=== PATIENT | female | born 1970 | race Caucasian/White ===

== ENCOUNTER 2020-08-06 00:42 | Outpatient (CLI) | payer OTHER, BC, SELFPAY ==
[2020-08-06 19:06] LABS: SARS-CoV-2 RNA PCR Negative
== END 2020-08-06 00:43 | disposition home or self-care (01) ==
LOC: ANHCOVIDDT 00:42
PROVIDERS: PCP Physician Assistant; Visit Provider Surgery Plastic and Reconstructive Surgery
DX: Z01.812 Encounter for preprocedural laboratory examination (principal); Z20.822 Contact with and (suspected) exposure to COVID-19
CPT/HCPCS: C9803; U0003

== ENCOUNTER 2020-08-09 00:33 | Day surgery (SDC) | payer OTHER, SELFPAY ==
[2020-08-03 12:59] VITALS: BMI 23.9
[2020-08-09] VITALS (10 sets, daily range): BP systolic 101–120; BP diastolic 55–71; PULSE 59–81; RESP 14–20; TEMP 36.1–36.4; O2SAT 97–100
--- NOTE | 2020-08-09 10:08 | PM.PROC ---
Procedure Note - Detailed Date of procedure: 08/09/20 Pre-op diagnosis: hx of breast augmentation Post-op diagnosis: same Procedure performed: Bilateral breast implant removal with capsulectomy Description of procedure: Preoperatively the risks, benefits, alternatives were again discussed extensively. I want to make sure she was very realistic about the risks involved as well as expectations. I was very up front honest that I can never guarantee complete removal of the capsule. This may not improve any of her symptoms. She understands she will need drains. All questions were answered to her satisfaction today and consent obtained. She was taken to the operating room placed supine on the operating room table. Anesthesia was provided by anesthesia and she was prepped and draped in a standard sterile fashion. Surgical time-out was taken. Fifteen blade used to make an incision at that IMF. Dissection was continued down until the implant capsule was identified. I made every attempt to remove as much of the capsule as possible doing this in a safe manner. Any residual capsule was cauterized. I removed bilateral implants which were sent to pathology. I saw no worrisome features. No masses or seromas. I irrigated with 3 L of saline solution. Placed bilateral 15 Jarret drains which were sutured into place with 3-0 nylon. I closed using 2-0 Vicryl followed by 3-0 Monocryl in a running subcuticular 4-0 Monocryl followed by tissue glue. Dressings were placed. She was awoke and taken to the PACU without difficulty. All instrument sponge counts were correct at the end of the case. Anesthesia: GLMA Surgeon: Jeffrey Wilkinson MD Estimated blood loss (mL): 10 Drains: Yes (Bilateral Jarret drains) Packing: No Pathology: yes (Bilateral breast capsules) Complications: No immediate complications Condition: stable Disposition: PACU Findings: No seroma. No masses. No worrisome features.
[2020-08-09] MEDS: LACTATED RINGERS 1,000 ML 30 ML IV CONT (10:50)
--- NOTE | 2020-08-09 11:01 | WPDANESEPPF ---
Anes - Initial Pre Proc Eval Procedure: Operation Date: 08/09/20 12:30 Proposed Procedures p Removal Bilateral Breast Implants with Capsulectomy - Jeffrey Wilkinson MD Date/Time: 08/09/20 11:01 Surgeon: Jeffrey Wilkinson MD Pre Op Diagnosis: hx of breast augmentation Patient Data Age: 50 Gender: F Height: 5 ft 4 in Weight: 63.2 kg Allergies Allergy/AdvReac Type Severity Reaction Status Date / Time bacitracin Allergy Severe Anaphylaxis Verified 08/06/20 08:42 [From Neosporin ([id number])] neomycin Allergy Severe Anaphylaxis Verified 08/06/20 08:42 [From Neosporin ([id number])] polymyxin B Allergy Severe Anaphylaxis Verified 08/06/20 08:42 [From Neosporin ([id number])] Penicillins Allergy Intermediate SWOLLEN Unverified 08/06/20 08:42 JOINTS/HIVES Home Medications Medication Instructions Recorded Confirmed Type folic acid 20 mg capsule 20 mg PO DAILY 06/13/20 08/03/20 History methotrexate (PF) 20 mg/0.4 mL 20 mg SUBCUT WEEKLY 06/13/20 08/03/20 History subcutaneous auto-injector valacyclovir 1 gram tablet 1,000 mg PO DAILY 06/13/20 08/03/20 History cholecalciferol (vitamin D3) 1,250 mcg PO WEEKLY 08/03/20 08/03/20 History docusate sodium 100 mg capsule 100 mg PO DAILY #14 cap 08/06/20 Rx ondansetron HCl 4 mg tablet 4 mg PO Q8H #24 tablet 08/06/20 Rx oxycodone-acetaminophen 5 mg-325 1 tablet PO Q6H PRN #15 tablet 08/07/20 08/07/20 Rx mg tablet Patient hx anesthesia problems: none Family hx anesthesia problems: none PMFSH Surgical History Surgical History History of History of cholecystectomy History of tubal ligation Family History Family History Mother Lung cancer Father Heart disease COPD (chronic obstructive pulmonary disease) Grandparent Breast cancer Lung cancer Colon cancer Social History Social History Smoking status: Never smoker Alcohol intake: current Living arrangements: with family Spiritual care concerns: No Anes - Eval Final PreProcedure Day of Procedure 08/09/20 11:01 Patient weight: normal Heart: regular rate and rhythm Lungs: clear to auscultation Airway: Mallampati scale class II Neurological: alert and oriented Last oral intake: >/= 8 hours ASA classification: II Emergent: no Anesthetic plan: proceed Anesthesia type and monitoring: general LMA and standard monitoring Informed Consent: The patient's anesthetic plan and its attendant risks and benefits were discussed with the patient/family/POA. Questions were solicited and answers provided to the satisfaction of the patient/family/POA.
[2020-08-09] MEDS: CLINDAMYCIN 900 MG/D5W 50 ML 900 MG/50 ML PIGGYBACK 50 MG IVPB (11:20)
--- NOTE | 2020-08-09 11:29 | SUR.OPER ---
bilateral breast injection [address] Wilkinson see MAR. Prep [employer]
--- NOTE | 2020-08-09 11:57 | SUR.OPER ---
right and left breast implants separate containers with patient ID Labels on/to clean processing and to return to OR. Sammy in clean processing notified of sending above.
--- NOTE | 2020-08-09 12:13 | SUR.OPER ---
bilateral breast capsule tissue fresh to pathology per PCT Jens to [facility] and informed of being fresh breast tissue.
[2020-08-09] MEDS: fentaNYL CITRATE INJ (*CRX) 100 MCG/2 ML VIAL 25 MCG IV PUSH ×5 (12:51→13:26)
[2020-08-09] MEDS: ONDANSETRON INJ 4 MG/2 ML VIAL IV PUSH (14:48)
== END 2020-08-09 15:15 | disposition home or self-care (01) ==
PROVIDERS: PCP Physician Assistant; Visit Provider Surgery Plastic and Reconstructive Surgery
PROC: 0HPT0JZ Removal of Synthetic Substitute from Right Breast, Open Approach (ICD-10-PCS; CPT 19371; principal; 2020-08-09 12:30)
DX: Z45.812 Encounter for adjustment or removal of left breast implant (principal); Z45.811 Encounter for adjustment or removal of right breast implant; N60.32 Fibrosclerosis of left breast; N60.31 Fibrosclerosis of right breast
CPT/HCPCS: 19371; 88305; J0171; J1100; J2250; J2405; J2704; J3010; J7040; J7120

== ENCOUNTER → 2021-04-22 12:28 | Outpatient (CLI) | payer BC, OTHER, SELFPAY ==
--- NOTE | ~2021-04-22 | XR_ITS ---
XR cervical spine 4-5V DATE: 04/22/2021 13:02 INDICATION: Neck pain TECHNIQUE: Standing AP, swimmer's, lateral, odontoid and open-mouth views. COMPARISON: None FINDINGS: There is straightening of the cervical spine. C1 and C2 are normally aligned and the odontoid process is intact. No fracture or dislocation or locked facet or prevertebral soft tissue swelling. There is approximately 1.2 mm anterolisthesis at C4-5 and lesser anterolisthesis at C5-6. Cervical interspaces appear relatively preserved. IMPRESSION: Straightening Mild anterolisthesis at C4-5, minimal anterolisthesis at C5-6 Reviewed, dictated and finalized at location B.
== END ==
PROVIDERS: PCP Physician Assistant; Visit Provider Physician Assistant
DX: M54.2 Cervicalgia (principal); M53.82 Other specified dorsopathies, cervical region; M43.12 Spondylolisthesis, cervical region
CPT/HCPCS: 72050

== ENCOUNTER 2021-05-25 07:35 | Outpatient (CLI) | payer BC, OTHER, SELFPAY ==
--- NOTE | ~2021-05-25 | MR_ITS ---
EXAMINATION: MR brain/brain stem wo con EXAM DATE: 05/25/2021 08:25 INDICATION: Paresthesia, blurred vision . TECHNIQUE: Magnetic resonance imaging (MRI) of the brain/brain stem obtained without contrast. Moritt al T1, axial diffusion, gradient echo (T2*), T1, T2, FLAIR sequences obtained. Comparison is made to prior examination from 05/25/2021. FINDINGS: There are no areas of restricted diffusion to suggest acute infarction. There is no acute hemorrhage seen on the T2*, a hemosiderin sensitive sequence. No intraparenchymal brain mass. The ve ntricles are normal in size. There are no extra-axial collections. Flow voids are seen in the cereb ral arteries on the T2-weighted sequences consistent with their expected patency. The orbits are unr emarkable. Soft tissue is unremarkable. Right maxillary silent sinus syndrome. IMPRESSION: 1. Unremarkable brain . 2. Right maxillary silent sinus syndrome. Reviewed, dictated and finalized at location A.
== END 2021-05-25 07:36 | disposition home or self-care (01) ==
LOC: ANHIMG 07:42
PROVIDERS: PCP Physician Assistant; Visit Provider Physician Assistant
DX: R20.2 Paresthesia of skin (principal); H53.8 Other visual disturbances; R42 Dizziness and giddiness; J34.89 Other specified disorders of nose and nasal sinuses
CPT/HCPCS: 70551

== ENCOUNTER 2021-05-28 10:09 | Outpatient (CLI) | payer BC, OTHER, SELFPAY ==
--- NOTE | 2021-05-28 11:30 | NEURO_ITS ---
Impression: # Complains of paresthesia of upper extremities. # Normal nerve conduction study including motor and sensory nerves. # Normal needle/EMG exam. # Clinical correlation recommended. Nerve Conduction Studies Anti Sensory Summary Table Stim Site NR Peak (ms) P-T Amp (?V) Site1 Site2 Delta-P (ms) Dist (cm) Eddie (m/s) Left Median Anti Sensory (2-3nd Digit) Wrist 2.9 52.4 Wrist 2-3nd Digit 2.9 14.0 48 Wrist 3.0 66.9 Wrist 2-3nd Digit 2.9 14.0 48 Right Median Anti Sensory (2-3nd Digit) Wrist 3.0 69.3 Wrist 2-3nd Digit 3.0 14.0 47 Wrist 3.0 31.2 Wrist 2-3nd Digit 3.0 14.0 47 Left Radial Anti Sensory (Base 1st Digit) Wrist 2.7 19.4 Wrist Base 1st Digit 2.7 0.0 Right Radial Anti Sensory (Base 1st Digit) Wrist 2.2 21.2 Wrist Base 1st Digit 2.2 0.0 Left Ulnar Anti Sensory (5th Digit) Wrist 2.7 51.2 Wrist 5th Digit 2.7 14.0 52 Right Ulnar Anti Sensory (5th Digit) Wrist 2.6 75.5 Wrist 5th Digit 2.6 14.0 54 Motor Summary Table Stim Site NR Onset (ms) O-P Amp (mV) Site1 Site2 Delta-0 (ms) Dist (cm) Eddie (m/s) Left Median Motor (Abd Poll Brev) Wrist 3.0 6.5 Elbow Wrist 4.4 26.0 59 Elbow 7.4 5.9 Right Median Motor (Abd Poll Brev) Wrist 2.9 6.7 Elbow Wrist 5.1 28.0 55 Elbow 8.0 3.3 Left Ulnar Motor (Abd Dig Minimi) Wrist 2.5 7.3 A Elbow Wrist 4.8 28.0 58 A Elbow 7.3 5.8 Right Ulnar Motor (Abd Dig Minimi) Wrist 2.7 8.0 A Elbow Wrist 4.7 28.0 60 A Elbow 7.4 6.7 F Wave Studies NR F-Lat (ms) L-R F-Lat (ms) Left Median (Mrkrs) (Abd Poll Brev) 27.05 0.64 Right Median (Mrkrs) (Abd Poll Brev) 27.70 0.64 Left Ulnar (Mrkrs) (Abd Dig Min) 28.05 0.00 Right Ulnar (Mrkrs) (Abd Dig Min) 28.05 0.00 EMG Side Muscle Nerve Root Ins Act Fibs Amp Dur Recrt Comment Right 1stDorInt Ulnar C8-T1 Nml Nml Nml Nml Nml Right Ext Indicis Radial (Post Int) C7-8 Nml Nml Nml Nml Nml Right Ext Digitorum Radial (Post Int) C7-8 Nml Nml Nml Nml Nml Right BrachioRad Radial C5-6 Nml Nml Nml Nml Nml Right PronatorTeres Median C6-7 Nml Nml Nml Nml Nml Right Abd Poll Brev Median C8-T1 Nml Nml Nml Nml Nml Left 1stDorInt Ulnar C8-T1 Nml Nml Nml Nml Nml Left Ext Indicis Radial (Post Int) C7-8 Nml Nml Nml Nml Nml Left Ext Digitorum Radial (Post Int) C7-8 Nml Nml Nml Nml Nml Left BrachioRad Radial C5-6 Nml Nml Nml Nml Nml Left PronatorTeres Median C6-7 Nml Nml Nml Nml Nml Left Abd Poll Brev Median C8-T1 Nml Nml Nml Nml Nml Right ABD Dig Min Ulnar C8-T1 Nml Nml Nml Nml Nml Left ABD Dig Min Ulnar C8-T1 Nml Nml Nml Nml Nml MTDD
== END 2021-05-28 10:10 | disposition home or self-care (01) ==
LOC: ANHNEURO 10:09
PROVIDERS: PCP Physician Assistant; Visit Provider Physician Assistant
DX: R20.2 Paresthesia of skin (principal)
CPT/HCPCS: 95886; 95910; 95911

== ENCOUNTER 2022-04-22 00:35 | Day surgery (SDC) | payer OTHER, SELFPAY ==
[2022-04-16 12:19] VITALS: BMI 25.7
--- NOTE | 2022-04-16 12:29 | PC.NURSE ---
Report to the Outpatient Waiting Room, entrance under the green pavilion located off [facility], at time 1215 on date 04/22/22. OR Time: 1415. Time changes happen often and if your time is changed the preop area will call you the afternoon before. - You and your visitor will be asked to self-screen and do not enter if you have any COVID symptoms. - Only one visitor and NO children visitors are allowed at this time. - The patient visitor is requested to leave or wait in car when not with patient due to restrictions. - A mask is required within the hospital. Patients may have clear liquids (water, carbonated beverages, clear teas, apple juice) until 3 hours prior to surgery with a maximum of 20 ounces. - No food from midnight until time of surgery Take the following medications with a SIP of water the morning of surgery: VALACYCLOVIR IF NEEDED Medications to discontinue per physician: IMURAN AVSOLA Date to take last dose: PER DR. GRIFFIN Please no make-up, nail taiwanese, hairspray, perfume, deodorant, or body powder the day of surgery. No jewelry (including any body piercings) or valuables the day of surgery, leave them at home. Please take a shower or bath the night before, or the morning of, surgery with an antibacterial soap. Wear comfortable, loose fitting clothing. - Jewelry must be removed prior to entering the operating room. Rings and piercings that are not removed may be cut off. - The hospital will not accept responsibility for valuables. - Please leave all valuables, including medications, at home the day of surgery. If you are going home after surgery, a licensed mechanic welder truck driver must drive you home. - NO public transportation without another adult. - We recommend that an adult stay with you for 24 hours following discharge. - We also recommend that you do not drive, make important decision, drink alcoholic beverages, or take any drugs that were not prescribed by your health care provider for at least 24 hours after your discharge time. Follow any additional instructions given to you from your surgeon. If you or anyone in your household have experienced Covid symptoms in the past week, please notify your surgeon or the nurse liaison at the phone number below for possible testing. Telephone instructions given to PT - MANNY GONZALES and asked if any additional questions and then verbalized understanding. Patient advised to call surgeon office or pre surgery nurse liaison [phone] if any additional questions.
[2022-04-22] VITALS (8 sets, daily range): BP systolic 104–117; BP diastolic 53–69; PULSE 64–88; RESP 12–18; TEMP 36.1–36.6; O2SAT 97–100
--- NOTE | 2022-04-22 12:59 | WPDANESEPPF ---
Anes - Initial Pre Proc Eval Procedure: Operation Date: 04/22/22 14:15 Proposed Procedures p Bilateral Breast Augmentation - Jeffrey Wilkinson MD Date/Time: 04/22/22 12:59 Surgeon: Jeffrey Wilkinson MD Pre Op Diagnosis: micromastia Patient Data Age: 51 Gender: F Height: 1.65 m Weight: 70.31 kg Allergies Allergy/AdvReac Type Severity Reaction Status Date / Time bacitracin Allergy Severe Anaphylaxis Verified 04/16/22 12:17 [From Neosporin ([id number])] neomycin Allergy Severe Anaphylaxis Verified 04/16/22 12:17 [From Neosporin ([id number]-[id number])] polymyxin B Allergy Severe Anaphylaxis Verified 04/16/22 12:17 [From Neosporin ([id number])] Penicillins Allergy Intermediate SWOLLEN Verified 04/16/22 12:17 JOINTS/HIVES Home Medications Medication Instructions Recorded Confirmed Type valacyclovir 1 gram tablet 1,000 mg PO DAILY PRN Cold Sores 06/13/20 04/16/22 History azathioprine 50 mg tablet (Imuran) 50 mg PO DAILY 10/24/21 04/16/22 History infliximab-axxq 100 mg intravenous 100 mg IV [id number] 10/24/21 04/16/22 History solution (Avsola) Patient hx anesthesia problems: none Family hx anesthesia problems: none Results Review: All pre-operative results and documents have been reviewed as part of the pre-operative evaluation. [facility] Past Medical History Medical History (Updated 12/03/21 @ 16:02 by Tia aBrriga) Anxiety Arthritis Depression Hepatitis at age 16 History of cold sores Rheumatoid arthritis infusions Screening mammogram, encounter for Seizure as a child Thyroid disease Surgical History Surgical History (Updated 10/23/21 @ 09:29 by Gloria Huang) History of abdominoplasty 2013 History of breast implant removal 08/09/20 History of 06/19/88 12/03/92 History of cardiovascular surgery 1998 heart augmentation History of cholecystectomy 1989 History of colposcopy with cervical biopsy cervical dysplasia History of orthopedic surgery 2014 tarsal tunnel right foot 2015 tarsal tunnel left foot History of robot-assisted laparoscopic hysterectomy 11/12/17 RA TLH--adenomyosis, acute & chronic inflammation, early proliferative endometrium History of tubal ligation 1995 Family History Family History Mother Lung cancer Father Heart disease Chronic obstructive lung disease Diabetes mellitus Grandparent Breast cancer Lung cancer Colon cancer Osteoporosis maternal grandmother Malignant neoplasm of liver maternal grandmother Social History Social History (Updated 10/24/21 @ 08:34 by SANDHYA Trivedi) Smoking status: Never smoker Alcohol intake: current Drinks per week: 3 Alcohol use details: ocassional Substance use: never Substance use type: does not use Living arrangements: with family Additional living arrangements comments: Additional occupation/education comments: [employer] Gender identity (if verbalized by the patient): Female Sexual Orientation (if Verbalized by the Patient): Straight or Heterosexual Spiritual care concerns: No Anes - Eval Final PreProcedure Day of Procedure 04/22/22 12:59 Patient weight: normal Heart: regular rate and rhythm Lungs: clear to auscultation Airway: Mallampati scale class II Neurological: alert and oriented Last oral intake: >/= 8 hours ASA classification: II Emergent: no Anesthetic plan: proceed Anesthesia type and monitoring: general LMA and standard monitoring Results Review: All pre-operative results and documents have been reviewed as part of the pre-operative evaluation. Informed Consent: The patient's anesthetic plan and its attendant risks and benefits were discussed with the patient/family/POA. Questions were solicited and answers provided to the satisfaction of the patient/family/POA.
[2022-04-22] MEDS: LACTATED RINGERS 1,000 ML 30 ML IV CONT ×2 (13:21→16:13)
--- NOTE | 2022-04-22 14:06 | WPDHPUPDATE1 ---
History and Physical Update Update Date/Time: 04/22/22 14:06 History and Physical has been reviewed, including an updated exam of the patient. There are NO changes in the patient's condition. Risks, benefits, and alternatives have been discussed and questions answered. Patient agrees to proceed with procedure.
--- NOTE | 2022-04-22 14:38 | W.PM.PROC2 ---
Procedure Note - Detailed Date of Procedure 04/22/22 Pre-op Diagnosis micromastia Post-op Diagnosis Same Procedure Performed Bilateral augmentation mammaplasty Surgeon Jeffrey Wilkinson MD Findings Bilateral saline 400cc filled to 420. Right REF# [id number] SN [id number] Left REF# [id number] SN [id number] Description of Procedure She is here today for bilateral breast augmentation. She has previously had submuscular augmentation and developed syptoms she attributes to breast implant illness. She does not believe this is a result of her implants and would like to proceed with replacement of implants. Previously and again today the risks, benefits, alternatives were discussed in extensive detail. I wanted her to be very realistic about the risks involved as well as expectations. We discussed aftercare and what to monitor for. Made sure answered all of her questions to her satisfaction today and consent was obtained. Marked in the preoperative holding area with their verification. The patient was taken to the operating room placed supine on the operating table. Anesthesia was provided by anesthesiology. A surgical time-out was taken. We cleansed the skin and 1% lidocaine and 0.25% Marcaine with epinephrine was used anesthetize as a field block. She was prepped and draped in a standard sterile fashion. Tegaderm nipple Parker were placed. A 15 blade used to make an incision removing the previous inframammary fold incision. Dissection was continued at 45 degree angle until the chest wall as identified. Previous pocket was entered which appeared to be larger than desired. Irrigated with 2 liters of saline on TUR tubing. Laterally popcorn capsulorraphy was completed (bilateral). I then copiously irrigated with saline solution and verified a strict hemostasis. Next the use a triple antibiotic and Betadine containing solution to irrigate the pocket. I washed my gloves with the triple antibiotic and Betadine solution. We washed the implant immediately upon opening it with this solution and only opened it when we needed it. I used implant funnel and no-touch technique. The implant was introduced into the pocket using the funnel. Having verified positioning of the implant this was closed using 2-0 Vicryl followed by 3-0 Monocryl in a running subcuticular 4-0 Monocryl followed by tissue glue. Fluffs and surgical bra were placed. Patient was awoke and taken to PACU without difficulty. All instrument sponge counts were correct at the end of the case. Estimated Blood Loss 10 Drains No Packing No Pathology None sent Complications No immediate complications Condition Stable Disposition PACU
[2022-04-22] MEDS: ceFAZolin 2 GM/D5W 50 ML 2 GM/50 ML BAG IVPB (14:58)
[2022-04-22] MEDS: BUPIVACAINE HCL 0.25% PF 30 ML VIAL INFILTRATE (15:09)
[2022-04-22] MEDS: LIDO 1%/EPINEPHRINE 1:100,000 10 ML VIAL 30 ML INFILTRATE (15:09)
[2022-04-22] MEDS: TRANEXAMIC ACID 1,000MG/ISO100 1,000 MG/100 ML BAG 200 MG IVPB (15:10)
[2022-04-22] MEDS: NACL 0.9% IRRIG POUR BOTTLE 900 ML, GENTAMICIN SULFATE INJ 160 MG, CLINDAMYCIN PHOS INJ... IRRIGATION (15:42)
--- NOTE | 2022-04-22 15:54 | SUR.OPER ---
Implants brought from 's office intact. #[id number] X 2 ANTWAN SALINE-FILLED BREAST IMPLANTS RIGHT SN #[id number] EXP: 06-30-2025 FILLED: 420ML LEFT SN #[id number] EXP: 06-30-2025 FILLED: 420ML
[2022-04-22] MEDS: oxyCODONE HCL (*CRX) 5 MG TAB IR PO (17:27)
== END 2022-04-22 18:05 | disposition home or self-care (01) ==
PROVIDERS: PCP Physician Assistant; Visit Provider Surgery Plastic and Reconstructive Surgery
PROC: (CPT 19325; principal; 2022-04-22 14:15)
DX: Z41.1 Encounter for cosmetic surgery (principal); N64.82 Hypoplasia of breast; M06.9 Rheumatoid arthritis, unspecified; Z79.899 Other long term (current) drug therapy
CPT/HCPCS: 19325; A9270; J0690; J1100; J1580; J2250; J2405; J2704; J3010; J7030; J7120

== ENCOUNTER 2022-07-23 08:59 | Emergency (ER) | payer BC, OTHER, SELFPAY ==
--- NOTE | ~2022-07-23 | CT_ITS ---
EXAMINATION: CT abdomen pelvis w con INDICATION: Abdominal pain TECHNIQUE: Computed tomographic images of the abdomen and pelvis were obtained after the administrati on of 100 cc of Omnipaque 350 intravenous contrast. The dose-length product (DLP) was 491.99 mGy-cm. Automated exposure control and iterative reconstruction technique were employed. COMPARISON: None available FINDINGS: Minimal dependent atelectasis is present in the lung bases. The heart size is normal. The l iver is diffusely low in attenuation when compared with the spleen, consistent with hepatic steatosis . The gallbladder is surgically absent. The spleen, pancreas, and adrenal glands are normal. The kidn eys are unremarkable. No pathologically enlarged abdominal or pelvic lymph nodes are identified. Ther e is no free intraperitoneal gas or evidence of bowel obstruction. The appendix is normal. There is m ild lumbar spondylosis. IMPRESSION: 1. No CT correlate for the patient's symptoms. Reviewed, dictated and finalized at location B. D[facility]ER
[2022-07-23 09:04] VITALS: BP 116/102; PULSE 78; RESP 24; TEMP 36.4; O2SAT 100
[2022-07-23 09:30] LABS: Alanine Aminotransferase 21 U/L (6-35); Albumin Level 4.7 g/dL (3.5-5.1); Alkaline Phosphatase 78 U/L (38-126); Anion Gap 7 mmol/L (8-16); Aspartate Amino Transferase 35 U/L (14-36); Bilirubin,Total 0.3 mg/dL (0.2-1.3); Blood Urea Nitrogen 9 mg/dL (7-17); Calcium 9.6 mg/dL (8.4-10.2); Carbon Dioxide 27 mmol/L (22-30); Chloride 104 mmol/L (98-107); Estimated CRCL calculation 75 ml/min; Estimated Glomerular Filt Rate > 60; Glucose 118 mg/dL (65-110); Lipase 35 U/L (23-300); Potassium 3.9 mmol/L (3.4-5.0); Sodium 138 mmol/L (137-145)
--- NOTE | 2022-07-23 09:36 | ED.ABDPAIN ---
HPI - Abdominal Pain General Chief Complaint: Abdominal Pain Stated Complaint: head cold since 07/19 and abd pain since 0645 Time Seen by Provider: 07/23/22 09:02 Source: patient Mode of arrival: ambulatory Limitations: no limitations History of Present Illness HPI narrative: Patient is a 52-year-old female who presents to the ED with report of abdominal pain and N/V/D. Patient reports she works overnights and developed diarrhea last night. She states the diarrhea was green and dark brown in color, almost black. Denies bright red rectal bleeding. She developed some cramping throughout her upper abdomen around 6:45 AM this morning. By the time she arrived home, she had developed nausea and vomiting, which has since persisted. Unable to keep down any food or drink, which prompted her presentation. Patient denies any fevers. She has not taken anything for symptoms today. Denies previous similar pain. Denies history of ulcers or diverticulitis. Related Data Home Medications Medication Instructions Recorded Confirmed valacyclovir 1 gram tablet 1,000 mg PO DAILY PRN Cold Sores 06/13/20 04/22/22 azathioprine 50 mg tablet (Imuran) 50 mg PO DAILY 10/24/21 04/22/22 infliximab-axxq 100 mg intravenous 100 mg IV [id number] 10/24/21 04/22/22 solution (Avsola) Allergies Allergy/AdvReac Type Severity Reaction Status Date / Time bacitracin Allergy Severe Anaphylaxis Verified 07/23/22 09:11 [From Neosporin ([id number]-[id number])] neomycin Allergy Severe Anaphylaxis Verified 07/23/22 09:11 [From Neosporin ([id number]-[id number])] polymyxin B Allergy Severe Anaphylaxis Verified 07/23/22 09:11 [From Neosporin ([id number])] Penicillins Allergy Intermediate SWOLLEN Verified 07/23/22 09:11 JOINTS/HIVES Review of Systems Review of Systems: CONSTITUTIONAL: Denies fever, chills, or sweats. ENT: Denies rhinorrhea, congestion, sore throat, or otalgia. CARDIOVASCULAR: Denies chest pain. RESPIRATORY: Denies dyspnea. GASTROINTESTINAL: Reports upper abdominal pain, nausea, vomiting, and diarrhea. Denies rectal bleeding. GENITOURINARY: Denies dysuria, hematuria. All systems reviewed & are unremarkable except as noted in HPI and below PMFSH Past Medical History Medical History Anxiety Arthritis Depression Hepatitis at age 16 History of cold sores Rheumatoid arthritis infusions Screening mammogram, encounter for Seizure as a child Thyroid disease Surgical History Surgical History History of abdominoplasty 2014 History of breast implant removal 08/09/20 History of 06/19/88 12/03/92 History of cardiovascular surgery 1998 heart augmentation History of cholecystectomy 1989 History of colposcopy with cervical biopsy cervical dysplasia History of orthopedic surgery 2014 tarsal tunnel right foot 2016 tarsal tunnel left foot History of robot-assisted laparoscopic hysterectomy 11/12/17 RA TLH--adenomyosis, acute & chronic inflammation, early proliferative endometrium History of tubal ligation 1995 Family History Family History Mother Lung cancer Father Heart disease Chronic obstructive lung disease Diabetes mellitus Grandparent Breast cancer Lung cancer Colon cancer Osteoporosis maternal grandmother Malignant neoplasm of liver maternal grandmother Social History Social History Smoking status: Never smoker Alcohol intake: current Drinks per week: 3 Alcohol use details: ocassional Substance use: never Substance use type: does not use Additional living arrangements comments: Additional occupation/education comments: [employer] Gender identity (if verbalized by the patient): Female Sexual Orientatio
[2022-07-23] MEDS: SODIUM CHLORIDE 0.9% IV 1,000 ML 999 ML IV CONT ×2 (09:42→11:52)
[2022-07-23] MEDS: ONDANSETRON INJ 4 MG/2 ML VIAL IV PUSH (09:42)
[2022-07-23 09:44] LABS: Basophils Absolute Auto 0.1 K/mm3 (0.0-0.1); Basophils Percent Auto 0.9 % (0.2-1.2); Eosinophils Absolute Auto 0.1 K/mm3 (0-0.3); Eosinophils Percent Auto 2.4 % (0-4.4); Hematocrit 38.1 % (37.0-47.0); Hemoglobin 12.9 g/dL (12.0-15.0); Immature Granulocyte Absolute 0.03 K/mm3 (0.00-0.031); Immature Granulocyte Percent A 0.5 % (0-0.5); Lymphocytes Absolute Auto 2.24 K/mm3 (0.9-3.2); Mean Corpuscular HGB Conc 33.9 g/dl (32-36); Mean Corpuscular Volume 97.4 fl (80-100); Mean Platelet Volume 9.1 fl (7.4-10.4); Monocytes Absolute Auto 0.7 K/mm3 (0.1-0.6); Monocytes Percent Auto 12.1 % (2.6-8.5); Neutrophils Absolute Auto 2.4 K/mm3 (1.3-6.7); Neutrophils Percent Auto 43.1 % (45.5-73.1); Platelet Count Result 404 k/mm3 (150-375); Red Blood Count 3.91 M/mm3 (4.2-5.4); Red Cell Distribution Width 14.2 % (11.5-14.5); White Blood Count 5.5 K/mm3 (4.5-10.0)
[2022-07-23] MEDS: PANTOPRAZOLE SODIUM IV 40 MG VIAL IV PUSH (10:12)
[2022-07-23 11:02] LABS: Influenza A QL RT-PCR Negative (Negative); Influenza B QL RT-PCR Negative (Negative); SARS-CoV-2 RNA PCR Negative
[2022-07-23 11:14] VITALS: BP 97/64; PULSE 68; RESP 14; O2SAT 97
[2022-07-23 12:02] LABS: Add Urine Microscopic? NO; Appearance Urine Clear (Clear); Bilirubin Urine Negative (Negative); Blood Urine Negative (Negative); Color Urine Light Yellow (Yellow); Glucose Urine UA Negative (Negative); Ketones Urine Negative (Negative); Leukocyte Esterase Ur Negative LEU/UL (Negative); Nitrate Urine Negative (Negative); Protein Urine Negative (Negative); Specific Grav Ur <= 1.005 (1.001-1.035); Urobilinogen Urine 0.2 mg/dL (<2.0)
[2022-07-23 13:05] VITALS: BP 88/59; PULSE 73; RESP 14; O2SAT 97
[2022-07-23 13:21] VITALS: BP 113/70
[2022-07-23 13:31] VITALS: BP 103/61; PULSE 82; RESP 16; O2SAT 97
== END 2022-07-23 13:40 | disposition home or self-care (01) ==
PROVIDERS: Emergency Provider Physician Assistant; PCP Physician Assistant
DX: K52.9 Noninfective gastroenteritis and colitis, unspecified (principal); Z20.822 Contact with and (suspected) exposure to COVID-19; E07.9 Disorder of thyroid, unspecified; M06.9 Rheumatoid arthritis, unspecified; M19.90 Unspecified osteoarthritis, unspecified site; Z86.19 Personal history of other infectious and parasitic diseases
CPT/HCPCS: 36415; 74177; 80053; 81003; 83690; 85025; 87636; 96361; 96365; 96375; 99284; C9113; J0131; J2405; J7030; Q9967

== ENCOUNTER 2022-11-21 01:02 | Day surgery (SDC) | payer BC, OTHER, SELFPAY ==
[2022-11-12 09:33] VITALS: BMI 27.6
--- NOTE | 2022-11-20 09:47 | WPDANESEPPF ---
Anes - Initial Pre Proc Eval Procedure: Operation Date: 11/21/22 11:15 Proposed Procedures p Esophagogastroduodenoscopy & Screening Colonoscopy - Kun Saxena MD Date/Time: 11/20/22 09:47 Surgeon: Kun Saxena MD Pre Op Diagnosis: neoplasm screening, GERD Patient Data Age: 52 Gender: F Height: 1.63 m Weight: 73 kg Allergies Allergy/AdvReac Type Severity Reaction Status Date / Time bacitracin Allergy Severe Anaphylaxis Verified 11/12/22 09:29 [From Neosporin ([id number])] neomycin Allergy Severe Anaphylaxis Verified 11/12/22 09:29 [From Neosporin ([id number])] polymyxin B Allergy Severe Anaphylaxis Verified 11/12/22 09:29 [From Neosporin ([id number])] Penicillins Allergy Intermediate SWOLLEN Verified 11/12/22 09:29 JOINTS/HIVES Home Medications Medication Instructions Recorded Confirmed Type valacyclovir 1 gram tablet 1,000 mg PO DAILY PRN Cold Sores 06/13/20 11/12/22 History azathioprine 50 mg tablet (Imuran) See Rx Instructions .Route .COMPLEX 10/24/21 11/12/22 History infliximab-axxq 100 mg intravenous 100 mg IV [id number] 10/24/21 11/12/22 History solution (Avsola) omeprazole 20 mg capsule,delayed 20 mg PO DAILY #30 caps 07/23/22 11/12/22 Rx release ondansetron 4 mg disintegrating 4 mg PO Q8H PRN nausea and 07/23/22 11/12/22 Rx tablet vomiting #20 tabs sodium,potassium,mag sulfates 17.5 See Rx Instructions PO .COMPLEX 10/30/22 Rx gram-3.13 gram-1.6 gram oral soln #354 mL (Suprep Bowel Prep Kit) Patient hx anesthesia problems: none Family hx anesthesia problems: none Results Review: All pre-operative results and documents have been reviewed as part of the pre-operative evaluation. [facility] Past Medical History Medical History (Updated 11/20/22 @ 09:47 by Tyree Stockton DO) Anxiety Arthritis Depression Hepatitis at age 16 History of cold sores Rheumatoid arthritis infusions Screening mammogram, encounter for Seizure as a child Thyroid disease Surgical History Surgical History History of abdominoplasty 2013 History of breast implant removal 08/09/20 History of 06/19/88 12/03/92 History of cardiovascular surgery 1998 heart augmentation History of cholecystectomy 1989 History of colposcopy with cervical biopsy cervical dysplasia History of orthopedic surgery 2015 tarsal tunnel right foot 2016 tarsal tunnel left foot History of robot-assisted laparoscopic hysterectomy 11/12/17 [facility]--adenomyosis, acute & chronic inflammation, early proliferative endometrium History of tubal ligation 1995 Family History Family History Mother Lung cancer Father Heart disease Chronic obstructive lung disease Diabetes mellitus Grandparent Breast cancer Lung cancer Colon cancer Osteoporosis maternal grandmother Malignant neoplasm of liver maternal grandmother Social History Social History Smoking status: Never smoker Alcohol intake: current Drinks per week: 3 Alcohol use details: socially Substance use: never Substance use type: does not use Living arrangements: with family Additional living arrangements comments: Occupation/Education: occupation Additional occupation/education comments: [employer] Gender identity (if verbalized by the patient): Female Sexual Orientation (if Verbalized by the Patient): Straight or Heterosexual Spiritual care concerns: No Anes - Eval Final PreProcedure Day of Procedure 11/20/22 09:47 Patient weight: overweight Heart: regular rate and rhythm Lungs: clear to auscultation Airway: Mallampati scale class II Neurological: alert and oriented Last oral intake: >/= 8 hours ASA classification: II Emergent: no Anestheti
[2022-11-21 06:47] VITALS: BP 111/68; PULSE 74; RESP 18; TEMP 36.1; O2SAT 99; BMI 28.0
[2022-11-21] MEDS: LACTATED RINGERS 1,000 ML 150 ML IV CONT (07:08)
--- NOTE | 2022-11-21 07:33 | PM.HPGS ---
History of Present Illness History of Present Illness Consent: Risks, benefits, and alternatives have been discussed and questions answered. Patient agrees to proceed with procedure. Chief complaint: neoplasm screening, GERD Narrative: Gladis Lockhart is a 52 year old female Presents for colonoscopy and EGD. Patient's current weight appetite bowel movements are normal. Patient reports since July she has had 3 episodes typically will have several days of heartburn followed by not nausea vomiting. She initially went to the ER and was prescribed Zofran which she has taken on subsequent episodes this will break her cycle. She feels good until the next episode. She really denies any precipitating events. She has continued since July on omeprazole and addition to Zofran. She presents today for further evaluation with EGD and colonoscopy. Patient has never had colonoscopy screening has been advised. She denies any blood in her stools. She has no fever. Family history is noncontributory. Review of Systems Review of Systems: Review of systems noncontributory. [facility] Past Medical History Medical History (Updated 11/21/22 @ 07:36 by Kun Saxena MD) Anxiety Arthritis Depression Hepatitis at age 16 History of cold sores Rheumatoid arthritis infusions Screening mammogram, encounter for Seizure as a child Thyroid disease Surgical History Surgical History History of abdominoplasty 2013 History of breast implant removal 08/09/20 History of 06/19/88 12/03/92 History of cardiovascular surgery 1998 heart augmentation History of cholecystectomy 1989 History of colposcopy with cervical biopsy cervical dysplasia History of orthopedic surgery 2014 tarsal tunnel right foot 2016 tarsal tunnel left foot History of robot-assisted laparoscopic hysterectomy 11/12/17 [facility]--adenomyosis, acute & chronic inflammation, early proliferative endometrium History of tubal ligation 1995 Family History Family History Mother Lung cancer Father Heart disease Chronic obstructive lung disease Diabetes mellitus Grandparent Breast cancer Lung cancer Colon cancer Osteoporosis maternal grandmother Malignant neoplasm of liver maternal grandmother Social History Social History Smoking status: Never smoker Alcohol intake: current Drinks per week: 3 Alcohol use details: socially Substance use: never Substance use type: does not use Living arrangements: with family Additional living arrangements comments: Occupation/Education: occupation Additional occupation/education comments: [employer] Gender identity (if verbalized by the patient): Female Sexual Orientation (if Verbalized by the Patient): Straight or Heterosexual Spiritual care concerns: No Meds Home Medications and Allergies Home Medications Medication Instructions Recorded Confirmed Type valacyclovir 1 gram tablet 1,000 mg PO DAILY PRN Cold Sores 06/13/20 11/12/22 History azathioprine 50 mg tablet (Imuran) See Rx Instructions .Route .COMPLEX 10/24/21 11/12/22 History infliximab-axxq 100 mg intravenous 100 mg IV [id number] 10/24/21 11/12/22 History solution (Avsola) omeprazole 20 mg capsule,delayed 20 mg PO DAILY #30 caps 07/23/22 11/12/22 Rx release ondansetron 4 mg disintegrating 4 mg PO Q8H PRN nausea and 07/23/22 11/12/22 Rx tablet vomiting #20 tabs sodium,potassium,mag sulfates 17.5 See Rx Instructions PO .COMPLEX 10/30/22 Rx gram-3.13 gram-1.6 gram oral soln #354 mL (Suprep Bowel Prep Kit) Allergies Allergy/AdvReac Type Severity Reaction Status Date / Time bacitracin Allergy Severe Anaphylaxis Verified 11/12/22 09:29 [From Neosporin ([id number])] neomycin A
--- NOTE | 2022-11-21 08:20 | SUR.OPER ---
Egd completed at 08, Colonoscopy started at 08
[2022-11-21] MEDS: SIMETHICONE ORAL SUSPENSION 20 MG/0.3 ML 30 ML BOTTLE 0.6 ML IRRIGATION (08:22)
[2022-11-21 08:33] VITALS: BP 112/71; PULSE 81; RESP 18; O2SAT 98
[2022-11-21 08:43] VITALS: BP 114/71; PULSE 75; RESP 21; O2SAT 97
[2022-11-21 08:53] VITALS: BP 117/76; PULSE 65; RESP 20; O2SAT 99
== END 2022-11-21 08:55 | disposition home or self-care (01) ==
PROVIDERS: PCP Physician Assistant; Visit Provider Internal Medicine Gastroenterology
PROC: 0DJ08ZZ Inspection of Upper Intestinal Tract, Via Natural or Artificial Opening Endoscopic (ICD-10-PCS; CPT 43235; principal; 2022-11-21 08:00)
DX: Z12.11 Encounter for screening for malignant neoplasm of colon (principal); K64.8 Other hemorrhoids; R11.2 Nausea with vomiting, unspecified; D64.9 Anemia, unspecified; R10.13 Epigastric pain; M06.9 Rheumatoid arthritis, unspecified; Z79.620 Long term (current) use of immunosuppressive biologic
CPT/HCPCS: 45378; 43239; 87081; J2704; J7120

== ENCOUNTER → 2023-06-23 07:40 | Outpatient (CLI) | payer BC, OTHER, SELFPAY ==
--- NOTE | ~2023-06-23 | MR_ITS ---
MRI of the cervical spine Clinical History: Paresthesia bilateral hands Technique: Axial T2-weighted and gradient images, and sagittal T1-weighted, T2-weighted, and STIR mike ges were acquired. Findings: No fracture or subluxation seen in cervical spine. There is straightening of the normal cer vical lordosis. Vertebral bodies otherwise maintain normal height and alignment. No suspicious bone m arrow signal abnormality seen. No significant disc bulge or herniation seen at any cervical level. There are mild facet joint degene rative changes. No spinal canal stenosis, cord compression, or neural foraminal narrowing seen at any cervical level. No abnormal signal seen in the spinal cord. Paravertebral soft tissues are unremarkable. Impression: No significant abnormality seen. Reviewed, dictated and finalized at [facility]. [employer] Impression: No significant abnormality seen.
== END ==
PROVIDERS: PCP Orthopaedic Surgery; Visit Provider Orthopaedic Surgery
DX: R20.2 Paresthesia of skin (principal)
CPT/HCPCS: 72141

== ENCOUNTER 2023-08-07 03:29 | Day surgery (SDC) | payer BC, OTHER, SELFPAY ==
--- NOTE | 2023-08-02 10:05 | PM.IMHP ---
H&P: HPI History of Present Illness Date/Time: 08/02/23 10:05 Chief Complaint: stress incontinence Narrative: 53-year-old with stress incontinence. She desires surgical correction Review of Systems Review of Systems: All systems reviewed & are unremarkable except as noted in HPI and below PMFSH Past Medical History Medical History Anxiety Arthritis Depression Hepatitis at age 16 History of cold sores Menopause Normal endoscopic ultrasound of upper gastrointestinal tract Rheumatoid arthritis infusions Screening mammogram, encounter for Seizure as a child Surgical History Surgical History History of abdominoplasty 2013 History of breast implant removal 08/09/20 History of 06/19/88 12/03/92 History of cardiovascular surgery 1998 heart augmentation History of cholecystectomy 1989 History of colposcopy with cervical biopsy cervical dysplasia History of orthopedic surgery 2014 tarsal tunnel right foot 2016 tarsal tunnel left foot History of robot-assisted laparoscopic hysterectomy 11/12/17 [facility]--adenomyosis, acute & chronic inflammation, early proliferative endometrium History of tubal ligation 1995 Family History Family History Mother Lung cancer Father Heart disease Chronic obstructive lung disease Diabetes mellitus Grandparent Breast cancer Lung cancer Colon cancer Osteoporosis maternal grandmother Malignant neoplasm of liver maternal grandmother Social History Social History Smoking status: Never smoker Alcohol intake: current Drinks per week: 3 Alcohol use details: socially Substance use: never Substance use type: does not use Lack of Transportation: No Lack of Food: Never True Current Housing: I Have Housing Concerned About Future Housing: No Difficulty Paying Gas/Electric Bills: No Difficulty Paying for Meds: No Currently Unemployed: No Education: High School Diploma/GED Difficulty w/ Childcare or Family Care: No Living arrangements: with family Additional living arrangements comments: Occupation/Education: occupation Additional occupation/education comments: [employer] Gender identity (if verbalized by the patient): Female Sexual Orientation (if Verbalized by the Patient): Straight or Heterosexual Spiritual care concerns: No Meds Home Medications and Allergies Home Medications Medication Instructions Recorded Confirmed Type valacyclovir 1 gram tablet 1,000 mg PO DAILY PRN Cold Sores 06/13/20 11/12/22 History azathioprine 50 mg tablet (Imuran) See Rx Instructions .Route .COMPLEX 10/24/21 11/12/22 History omeprazole 20 mg capsule,delayed 20 mg PO DAILY #30 caps 07/23/22 11/12/22 Rx release ondansetron 4 mg disintegrating 4 mg PO Q8H PRN nausea and 07/23/22 11/12/22 Rx tablet vomiting #20 tabs infliximab 100 mg intravenous IV 01/19/23 History solution (Remicade) estradiol 0.5 mg tablet 0.5 mg PO DAILY #90 tabs 02/18/23 Rx Allergies Allergy/AdvReac Type Severity Reaction Status Date / Time bacitracin Allergy Severe Anaphylaxis Verified 01/19/23 08:43 [From Neosporin ([id number])] neomycin Allergy Severe Anaphylaxis Verified 01/19/23 08:43 [From Neosporin ([id number])] polymyxin B Allergy Severe Anaphylaxis Verified 01/19/23 08:43 [From Neosporin ([id number])] Penicillins Allergy Intermediate SWOLLEN Verified 01/19/23 08:43 JOINTS/HIVES Exam Narrative: no acute distress normal breathing alert oriented x3 urethral hypermobility Assessment and Plan Assessment and plan (1) TIKA (stress urinary incontinence, female): Code(s): N39.3 - Stress incontinence (female) (male
[2023-08-03 08:21] VITALS: BMI 28.3
--- NOTE | 2023-08-03 08:43 | PC.NURSE ---
Report to the Outpatient Waiting Room, entrance under the green pavilion located off [facility], at 0630 on 08-07-23. Planned Procedure Time: 0830. Time changes happen often and if your time is changed the preop area will call you the afternoon before. - You and your visitor will be asked to self-screen and do not enter if you have any COVID symptoms. - A mask is optional within the hospital at this time. Patients may have clear liquids (water, carbonated beverages, clear teas, apple juice) until 3 hours prior to surgery with a maximum of 20 ounces. 0530 - No food from midnight until time of surgery - Infants may have breast milk until 4 hours before surgery, formula 6 hours prior to surgery. - Children will be allowed to drink immediately following surgery. If applicable, please bring a bottle or sippy cup to assist with drinking. Juice, water, soda, and popsicles are readily available. For infants on formula, please bring formula the day of surgery. Pacifiers are allowed. Take the following medications with a SIP of water the morning of surgery: None DO NOT STOP ANY OF YOUR OTHER PRESCRIPTION MEDICATIONS PRIOR TO SURGERY ?EXCEPT THE FOLLOWING Medications to discontinue per physician: vitamins and supplements Date to take last dose: 08-04-23 Please no make-up, nail american, hairspray, perfume, deodorant, or body powder the day of surgery. No jewelry (including any body piercings) or valuables the day of surgery, leave them at home. Please take a shower or bath the night before, or the morning of, surgery with an antibacterial soap. Wear comfortable, loose fitting clothing. Children are encouraged to wear pajamas. - Jewelry must be removed prior to entering the operating room. Rings and piercings that are not removed may be cut off. - The hospital will not accept responsibility for valuables. - Please leave all valuables, including medications, at home the day of surgery. If you are going home after surgery, a licensed reefer truck driver must drive you home. - NO public transportation without another adult if you receive anesthesia. - We recommend that an adult stay with you for 24 hours following discharge. - We also recommend that you do not drive, make important decision, drink alcoholic beverages, or take any drugs that were not prescribed by your health care provider for at least 24 hours after your discharge time. For Pediatric surgeries, we recommend two adults accompany the child home. Follow any additional instructions given to you from your surgeon. If you or anyone in your household have experienced Covid symptoms in the past week, please notify your surgeon or the nurse liaison at the phone number below for possible testing. Telephone instructions given to Gladis Lockhart and asked if any additional questions and then verbalized understanding. Patient advised to call surgeon office or pre surgery nurse liaison [phone] if any additional questions.
[2023-08-07] VITALS (8 sets, daily range): BP systolic 97–126; BP diastolic 51–79; PULSE 58–80; RESP 12–16; TEMP 36.6; O2SAT 96–99
[2023-08-07] MEDS: LACTATED RINGERS 1,000 ML 30 ML IV CONT (07:03)
--- NOTE | 2023-08-07 07:16 | WPDHPUPDATE1 ---
History and Physical Update Update Date/Time: 08/07/23 07:16 History and Physical has been reviewed, including an updated exam of the patient. There are NO changes in the patient's condition. Risks, benefits, and alternatives have been discussed and questions answered. Patient agrees to proceed with procedure.
--- NOTE | 2023-08-07 07:54 | WPDANESEPPF ---
Anes - Initial Pre Proc Eval Procedure: Operation Date: 08/07/23 08:30 Proposed Procedures p Urethral Sling - Mike Rosales MD Date/Time: 08/07/23 07:54 Surgeon: Mike Rosales MD Pre Op Diagnosis: stress incontinence Patient Data Age: 53 Gender: F Height: 1.63 m Weight: 77 kg Last Vital Signs Temp 97.8 F 08/07/23 06:42 Pulse 75 08/07/23 06:42 Resp 16 08/07/23 06:42 BP 119/79 08/07/23 06:42 Pulse Ox 96 08/07/23 06:42 O2 Del Method Room Air 08/07/23 06:42 Allergies Allergy/AdvReac Type Severity Reaction Status Date / Time bacitracin Allergy Severe Anaphylaxis Verified 08/07/23 06:56 [From Neosporin ([id number])] neomycin Allergy Severe Anaphylaxis Verified 08/07/23 06:56 [From Neosporin ([id number])] polymyxin B Allergy Severe Anaphylaxis Verified 08/07/23 06:56 [From Neosporin ([id number])] Penicillins Allergy Intermediate SWOLLEN Verified 08/07/23 06:56 JOINTS/HIVES Home Medications Medication Instructions Recorded Confirmed Type valacyclovir 1 gram tablet 1,000 mg PO DAILY PRN Cold Sores 06/13/20 08/07/23 History infliximab 100 mg intravenous 100 mg IV [id number] 01/19/23 08/07/23 History solution (Remicade) azathioprine 50 mg tablet 50 mg PO BID 08/03/23 08/07/23 History cholecalciferol (vitamin D3) 25 25 mcg PO DAILY 08/03/23 08/07/23 History mcg (1,000 unit) capsule (Vitamin D3) Patient hx anesthesia problems: post op nausea/vomiting Family hx anesthesia problems: none Results Review: All pre-operative results and documents have been reviewed as part of the pre-operative evaluation. [facility] Past Medical History Medical History Anxiety Arthritis Depression Hepatitis at age 16 History of cold sores Menopause Normal endoscopic ultrasound of upper gastrointestinal tract Rheumatoid arthritis infusions Screening mammogram, encounter for Seizure as a child Surgical History Surgical History History of abdominoplasty 2013 History of breast implant removal 08/09/20 History of 06/19/88 12/03/92 History of cardiovascular surgery 1998 heart augmentation History of cholecystectomy 1989 History of colposcopy with cervical biopsy cervical dysplasia History of orthopedic surgery 2014 tarsal tunnel right foot 2016 tarsal tunnel left foot History of robot-assisted laparoscopic hysterectomy 11/12/17 [facility]--adenomyosis, acute & chronic inflammation, early proliferative endometrium History of tubal ligation 1995 Family History Family History Mother Lung cancer Father Heart disease Chronic obstructive lung disease Diabetes mellitus Grandparent Breast cancer Lung cancer Colon cancer Osteoporosis maternal grandmother Malignant neoplasm of liver maternal grandmother Social History Social History Smoking status: Never smoker Second hand tobacco smoke exposure: No Alcohol intake: current Drinks per week: 3 Alcohol use details: sometimes Substance use: never Substance use type: does not use Lack of Transportation: No Lack of Food: Never True Current Housing: I Have Housing Concerned About Future Housing: No Difficulty Paying Gas/Electric Bills: No Difficulty Paying for Meds: No Currently Unemployed: No Education: High School Diploma/GED Difficulty w/ Childcare or Family Care: No Living arrangements: with family Additional living arrangements comments: Occupation/Education: occupation Additional occupation/education comments: [employer] Gender identity (if verbalized by the patient): Female Sexual Orientation (if Verbalized by the Patient): Straight or Heterosexual Spiritual car
[2023-08-07] MEDS: ceFAZolin 2 GM/D5W 50 ML 2 GM/50 ML BAG IVPB (08:16)
[2023-08-07] MEDS: BUPIVACAINE/EPINEPHRINE 0.5% 50 ML VIAL 30 ML INFILTRATE (08:31)
[2023-08-07] MEDS: oxyCODONE HCL (*CRX) 5 MG TAB IR PO (09:46)
--- NOTE | 2023-08-07 11:25 | W.PM.PROC2 ---
Procedure Note - Detailed Date of Procedure 08/07/23 Pre-op Diagnosis stress incontinence Post-op Diagnosis Same Procedure Performed mid urethral sling cystoscopy Surgeon Mike Rosales MD Anesthesia General Indications This is a female with confirm stress urinary incontinence. She desires surgical correction. She understands the risks of bleeding, infection, injury to the urinary tract, vaginal mesh extrusion, urinary tract mesh erosion, obstructive voiding requiring a secondary procedure, hip and leg pain, dyspareunia, inability to improve overactive bladder symptoms. She agrees to proceed. Description of Procedure She was correctly identified. Informed consent obtained. She was brought the operating room. She was given appropriate anesthesia. She was given appropriate perioperative antibiotics. A time-out performed. I marked out the site of the inner thigh incisions. I anesthetized the skin and made those incisions. I anesthetized the anterior vaginal wall over the mid urethra. I made a 1 cm incision. I dissected out laterally taking great care not to injure the refilled vaginal wall. I passed the helical trocars. First on the left. Then on the right. I did this from the thigh incision towards the vaginal incision. The sling was connected to the trocars and brought out through the thigh incision. I tensioned the sling appropriately. I cut and the plastic sheaths. I then closed the incision with 2 0 Vicryl. On cystoscopy there is no tumors or surgical artifact. There was no surgical artifact in the urethra. I cut the excess sling material. Close incisions with glue. She was awakened and transferred to the PACU in stable condition. Implants Urethral sling Estimated Blood Loss 20 Drains No Packing No Pathology None sent Complications No immediate complications Condition Stable Disposition PACU
== END 2023-08-07 10:53 | disposition home or self-care (01) ==
PROVIDERS: Visit Provider Urology
PROC: (CPT 57288; principal; 2023-08-07 08:30)
DX: N39.3 Stress incontinence (female) (male) (principal)
CPT/HCPCS: 57288; A9270; C1771; J0690; J1885; J2250; J2405; J2704; J3010; J7030; J7120

== ENCOUNTER 2025-03-15 10:46 | Emergency (ER) | payer BC, OTHER, SELFPAY ==
--- NOTE | ~2025-03-15 | XR_ITS ---
EXAMINATION: XR foot RT min 3V DATE: 03/15/2025 11:32 INDICATION: Pain to distal aspect of the right first, second and third metatarsals TECHNIQUE: 4 images of the right foot were obtained COMPARISON: None. FINDINGS: Posterior cruciate which limits evaluation. No fracture. No dislocation. Soft tissue swelling. Moderate-sized plantar calcaneal spur. IMPRESSION: 1. No fracture or dislocation. If symptoms persist or worsen, consider a short-term follow-up study or additional imaging for further assessment. Reviewed, dictated and finalized at location A. IMPRESSION: 1. No fracture or dislocation. If symptoms persist or worsen, consider a short-term follow-up study or additio nal imaging for further assessment.
[2025-03-15 11:10] VITALS: BP 112/73; PULSE 83; RESP 20; TEMP 36.4; O2SAT 98
--- NOTE | 2025-03-15 11:17 | ED.LOWEXIN ---
HPI - Extremity Injury (Lower) General Chief Complaint: Extremity Injury, Lower Stated Complaint: Fall / wants right foot checked out Time Seen by Provider: 03/15/25 11:17 Source: patient Mode of arrival: ambulatory Limitations: no limitations History of Present Illness HPI Narrative: 54 yo F presents with pain to R foot since last night. Missed last step and states toes and foot bent backwards, landed forward onto knees and then fell backwards. pain when bearing weight. Distal NV intact. Concerned for fracture. All systems reviewed and negative except as noted above. Related Data Home Medications ?Medication ?Instructions ?Recorded ?Confirmed ?Last Taken ?Type azathioprine 50 mg tablet 50 mg PO BID 08/03/23 01/30/25 Unknown History cholecalciferol (vitamin D3) 25 25 mcg PO DAILY 08/03/23 01/30/25 Unknown History mcg (1,000 unit) capsule (Vitamin D3) Allergies Allergy/AdvReac Type Severity Reaction Status Date / Time bacitracin (From Neosporin Allergy Severe Anaphylaxis Verified 03/15/25 11:19 ([id number])) neomycin (From Neosporin Allergy Severe Anaphylaxis Verified 03/15/25 11:19 ([id number])) polymyxin B (From Neosporin Allergy Severe Anaphylaxis Verified 03/15/25 11:19 ([id number])) Penicillins Allergy Intermediate SWOLLEN Verified 03/15/25 11:19 [facility] Past Medical History Medical History (Updated 03/16/25 @ 00:02 by Jessi Silver) Lip lesion scraped and was precancerous cells Normal endoscopic ultrasound of upper gastrointestinal tract Menopause Screening mammogram, encounter for Rheumatoid arthritis infusions Arthritis Anxiety Depression Hepatitis at age 16 History of cold sores Seizure as a child Surgical History Surgical History H/O midurethral sling procedure (08/07/23) History of breast implant removal 08/09/20 History of colposcopy with cervical biopsy cervical dysplasia History of robot-assisted laparoscopic hysterectomy 11/12/17 [facility]--adenomyosis, acute & chronic inflammation, early proliferative endometrium History of orthopedic surgery 2014 tarsal tunnel right foot 2016 tarsal tunnel left foot History of abdominoplasty 2013 History of cardiovascular surgery 1998 heart augmentation History of tubal ligation 1995 History of cholecystectomy 1989 History of 06/19/88 12/03/92 Family History Family History Mother Lung cancer Father Heart disease Chronic obstructive lung disease Diabetes mellitus Grandparent Breast cancer Lung cancer Colon cancer Osteoporosis maternal grandmother Malignant neoplasm of liver maternal grandmother Social History Social History Smoking status: Never smoker Second hand tobacco smoke exposure: No Alcohol intake: current Alcohol use details: sometimes 2 a month ?? Substance use: never Substance use type: does not use Other substance usage details: gummies for sleep 5 mg Do You Feel Safe in your Home?: Yes Lack of Transportation: No Lack of Food: Never True Current Housing: I Have Housing Concerned About Future Housing: No Difficulty Paying Gas/Electric Bills: No Difficulty Paying for Meds: No Currently Unemployed: No Education: High School Diploma/GED Difficulty w/ Childcare or Family Care: No Living arrangements: with family Additional living arrangements comments: Occupation/Education: occupation Additional occupation/education comments: [employer] Gender identity (if verbalized by the patient): Female Sexual Orientation (if Verbalized by the Patient): Straight or Heterosexual Spiritual care concerns: No Comments At time of signature, agree with nursing past medical, surgical, social and family history. There is no relevant family history pertinent to the presenting complaint. Exam Narrative: GENERAL: This is a well-nourished, well-developed patient, in no apparent distress. HEAD: normocephalic, atraumatic. EYES: PERRL. Sclera clear/white. Vision is grossly intact. EARS: External ears normal NOSE: External nose normal NECK: Neck supple, non-tender without lymphadenopathy, masses or thyromegaly. CARDIOVASCULAR: Regular rate and rhythm without murmurs, gallops, or rubs. RESPIRATORY: Clear to auscultation. Breath sounds equal bilaterally. No wheezes, rales, or rhonchi. SKIN: warm, Dry, intact with no suspicious lesions or rash, good texture and turgor. NEURO: awake, alert, and oriented to person, place and time. There were no obvious focal neurologic abnormalities. EXTREMITIES: Generalized tenderness to distal aspects of metatarsal bones and 2nd, 3rd and 4th toes. Mild swelling noted. No deformity. Range of motion and distal neurovascularly intact. Course Course Level of Care: Express Care Visit Vital Signs Vital signs: Vital Signs Temperature 36.4 C 03/15/25 11:10 Pulse Rate 83 03/15/25 11:10 Respiratory Rate 20 03/15/25 11:10 Blood Pressure 112/73 03/15/25 11:10 Pulse Oximetry 98 03/15/25 11:10 Oxygen Delivery Room Air 03/15/25 11:10 Temperature 36.4 C 03/15/25 11:10 Pulse Rate 83 03/15/25 11:10 Respiratory Rate 20 03/15/25 11:10 Blood Pressure 112/73 03/15/25 11:10 Pulse Oximetry 98 03/15/25 11:10 Oxygen Delivery Room Air 03/15/25 11:10 Reviewed MDM - Extremity Injury (Lower) MDM Narrative Medical decision making narrative: x-ray of right foot is negative for fracture. Patient offered postop shoe and Brendan wrap but she declined. Will continue [id number] pain medications, rice. Will see her primary care physician if pain is not improving. Differential Diagnosis Differential diagnosis: Likely ankle sprain and strain, ankle fracture and other ( Foot fracture, foot sprain, toe fracture) Imaging Data My impression: agree with radiologist Radiologist's impression: EXAMINATION: XR foot RT min 3V DATE: 03/15/2025 11:32 INDICATION: Pain to distal aspect of the right first, second and third metatarsals TECHNIQUE: 4 images of the right foot were obtained COMPARISON: None. FINDINGS: Posterior cruciate which limits evaluation. No fracture. No dislocation. Soft tissue swelling. Moderate-sized plantar calcaneal spur. IMPRESSION: 1. No fracture or dislocation. If symptoms persist or worsen, consider a short-term follow-up study or additional imaging for further assessment. Discharge Plan Discharge Clinical Impression: Right foot sprain Patient Disposition: Home Condition: Stable Instructions: Foot Sprain (ED) Additional Instructions: the x-ray of your right foot was negative for fracture. Take ibuprofen or Tylenol every 6-8 hours as needed for pain. Apply ice as needed for pain. Elevate when at rest. Avoid activities that increase pain to right foot. Follow-up with your primary care physician if pain is not improving in the next 1-2 weeks. Patient Language: Mauritian Prescriptions: No Action azathioprine 50 mg tablet 50 mg PO BID Patient Comments: patient takes for R.A. cholecalciferol (vitamin D3) [Vitamin D3] 25 mcg (1,000 unit) Capsule 25 mcg PO DAILY Follow-up/Referrals: Chandana,EVAN Schroeder [Primary Care Provider, Unknown] Stand Alone Forms: Work/School Release IP Time of Disposition: 12:05
== END 2025-03-15 12:14 | disposition home or self-care (01) ==
PROVIDERS: Emergency Provider Nurse Practitioner Family; PCP Physician Assistant
DX: S93.601A Unspecified sprain of right foot, initial encounter (principal); W10.9XXA Fall (on) (from) unspecified stairs and steps, initial encounter; R06.9 Unspecified abnormalities of breathing
CPT/HCPCS: 73630; 99213; G0463